=== PATIENT | male | born 1960 | race African-American/Black ===

== ENCOUNTER 2020-08-27 08:36 | Emergency (ER) | payer OTHER, MEDICAID ==
[~2020-08-27] VITALS: Ht 182.9 cm; Wt 90.7 kg
[2020-08-27] MEDS ORDERED: cloNIDine HCL 0.1 MG TAB ONE (08:45)
[2020-08-27] MEDS ORDERED: cloNIDine HCL 0.1 MG TAB PO ONE (08:45)
[2020-08-27 09:40] VITALS: BP 133/93
== END 2020-08-27 11:14 | disposition home or self-care (01) ==
LOC: ER 08:36
DX: I10 Essential (primary) hypertension (principal); R51.9 Headache, unspecified; F17.210 Nicotine dependence, cigarettes, uncomplicated
CPT/HCPCS: 70450